=== PATIENT | female | born 1995 | race Caucasian/White ===

== ENCOUNTER 2016-05-15 14:19 | Emergency (ER) | payer OTHER ==
[~2016-05-15] VITALS: Ht 167.6 cm; Wt 90.9 kg
[2016-05-15 14:19] VITALS: BP 138/74; TEMP 98.4
[~2016-05-15 14:19] MED LIST: CEPHALEXIN500 M1 PO; DEBROX OT; FLEXERIL 1010 MG/TAB PO; MOTRIN 800800 MG/TAB PO; NAPROSYN500 MG PO; NEURONTIN300 MG/CAP PO; NORCO 325 MG-51 TAB PO; TYLENOL/CODEINE1 ML PO; ULTRAM 50MG TAB50 MG PO; ZITHROMAX Z PA250 MG PO
[2016-05-15 16:30] LABS: AMPHETAMINE URINE POSITIVE; BARBITURATES URINE NEGATIVE; BENZODIAZEPINES URINE NEGATIVE; BUPRENORPHINE URINE NEGATIVE; METHADONE URINE NEGATIVE; OPIATES URINE NEGATIVE; OXYCODONE URINE NEGATIVE; PHENCYCLIDINE URINE NEGATIVE; PROPOXYPHENE URINE NEGATIVE; THC CANNABINOIDS URINE NEGATIVE
[2016-05-15 16:33] VITALS: PULSE 90
== END 2016-05-15 16:33 | disposition home or self-care (01) ==
LOC: COL.ER 14:19
PROVIDERS: Emergency Medicine
DX: F15.151 Other stimulant abuse with stimulant-induced psychotic disorder with hallucinations (principal)

== ENCOUNTER 2016-05-20 13:47 | Emergency (ER) | payer OTHER ==
[~2016-05-20] VITALS: Ht 167.6 cm; Wt 90.9 kg
[2016-05-20 13:48] VITALS: BP 147/68; PULSE 109; TEMP 98.4
== END 2016-05-20 14:34 | disposition home or self-care (01) ==
LOC: COL.ER 13:47
DX: Z00.8 Encounter for other general examination (principal)

== ENCOUNTER → 2016-06-07 | Outpatient (CLI) | payer OTHER ==
[~2016-06-07] MED LIST changes: +ATARAX50 MG PO; +BUSPAR10 MG PO; +CELEXA 20MG20 MG/TAB PO; +DESYREL 100MG100 MG PO; +PROZAC40 MG PO; +RISPERDAL 1M1 MG/TAB PO; +RISPERDAL2 MG PO; +VISTARIL 2525 MG/CAP PO; +ZOLOFT 100MG100 MG PO
[2016-06-07 18:23] LABS: BASO % 0.5 % (0.0-2.0); EOS # 0.1 (0.0-0.7); EOS % 1.3 % (0-4.0); GRAN # 2.7 (1.4-6.5); GRAN % 48.7 % (42.2-75.2); HEMATOCRIT 40.5 % (35.0-45.0); LYMPH # 2.4 (1.2-3.4); LYMPH % 42.1 % (20.0-51.0); MEAN CELL VOLUME 79 fl (80.0-95.0); MEAN CORPUSCULAR HEMOGLOBIN 25 pg (26.0-32.0); MEAN CORPUSCULAR HGB CONC 32 g/dl (33.0-37.0); MEAN PLATELET VOLUME 10.2 fl (7.4-10.4); MONO # 0.4 (0.1-0.6); PLATELET COUNT 215 K/mm3 (130-400); RED BLOOD COUNT 5.11 M/mm3 (4.10-5.30); REDCELL DISTRIBUTION WIDTH-CV 15.6 % (11.5-14.5); WHITE BLOOD COUNT 5.6 K/mm3 (4.8-10.8)
== END ==
LOC: ZCOL.LAB 17:39 → ZLAB.FHCC 17:39 → COL.RAD 06-10 13:30
DX: Z01.89 Encounter for other specified special examinations (principal)

== ENCOUNTER → 2016-06-10 | Outpatient (CLI) | payer OTHER | LOC: COL.RAD 13:19 | DX: N92.6 Irregular menstruation, unspecified (principal); E66.3 Overweight; R10.2 Pelvic and perineal pain ==

== ENCOUNTER 2016-06-12 11:00 | Emergency (ER) | payer OTHER ==
[~2016-06-12] VITALS: Ht 167.6 cm; Wt 100.0 kg
[~2016-06-12 11:00] MED LIST changes: -ATARAX50 MG PO; -BUSPAR10 MG PO; -CELEXA 20MG20 MG/TAB PO; -DESYREL 100MG100 MG PO; -PROZAC40 MG PO; -RISPERDAL 1M1 MG/TAB PO; -RISPERDAL2 MG PO; -VISTARIL 2525 MG/CAP PO; -ZOLOFT 100MG100 MG PO
[2016-06-12 11:04] VITALS: BP 156/74; PULSE 91; TEMP 97.9
== END 2016-06-12 12:06 | disposition home or self-care (01) ==
LOC: COL.ER 11:00
DX: J06.9 Acute upper respiratory infection, unspecified (principal); H61.23 Impacted cerumen, bilateral

== ENCOUNTER 2016-06-26 15:59 | Emergency (ER) | payer OTHER ==
[~2016-06-26] VITALS: Ht 167.6 cm; Wt 100.0 kg
[2016-06-26 16:04] VITALS: TEMP 98
[2016-06-26] MEDS ORDERED: VISTARIL 2525 MG/CAP PO (16:30)
[2016-06-26] MEDS ORDERED: PROZAC40 MG PO (16:30)
[2016-06-26] MEDS ORDERED: DESYREL 100MG100 MG PO (16:31)
[2016-06-26] MEDS ORDERED: RISPERDAL 1M1 MG/TAB PO (16:31)
[2016-06-26 16:44] LABS: ADJUSTED CALCIUM 9.1 mg/dL (8.4-10.2); ALANINE AMINOTRANSFERASE 269 U/L (9-52); ALBUMIN 4.4 gm/dL (3.5-5.0); ALKALINE PHOSPHATASE 67 U/L (50-136); ANION GAP 12 mmol/L (7-16); BILIRUBIN,TOTAL 0.8 mg/dL (0.0-1.0); BLOOD UREA NITROGEN 12 mg/dL (7-17); CALCIUM 9.4 mg/dL (8.4-10.2); CARBON DIOXIDE 24 mmol/L (22-30); CHLORIDE 100 mmol/L (98-107); CREATININE, serum 0.67 mg/dL (0.52-1.25); GLUCOSE 107 mg/dL (74-106); POTASSIUM 3.6 mmol/L (3.4-5.0); SODIUM 135 mmol/L (137-145); TOTAL PROTEIN 7.6 gm/dL (6.4-8.2)
[2016-06-26 16:51] LABS: ACETAMINOPHEN < 10 ug/mL (10-30); SALICYLATE < 1.0 mg/dL
[2016-06-26 16:53] LABS: HEMATOCRIT 37.7 % (35.0-45.0); HEMOGLOBIN 12.5 g/dl (12.0-15.0); MEAN CELL VOLUME 79 fl (80.0-95.0); MEAN CORPUSCULAR HEMOGLOBIN 26 pg (26.0-32.0); MEAN CORPUSCULAR HGB CONC 33 g/dl (33.0-37.0); MEAN PLATELET VOLUME 9.9 fl (7.4-10.4); PLATELET COUNT 168 K/mm3 (130-400); RED BLOOD COUNT 4.75 M/mm3 (4.10-5.30); REDCELL DISTRIBUTION WIDTH-CV 15.9 % (11.5-14.5); WHITE BLOOD COUNT 7.2 K/mm3 (4.8-10.8)
[2016-06-26 16:56] LABS: ADD PATHOLOGY DIFF REVIEW NO
[2016-06-26 16:59] LABS: AMPHETAMINE URINE NEGATIVE; BARBITURATES URINE NEGATIVE; BENZODIAZEPINES URINE NEGATIVE; BUPRENORPHINE URINE NEGATIVE; METHADONE URINE NEGATIVE; OPIATES URINE NEGATIVE; OXYCODONE URINE NEGATIVE; PHENCYCLIDINE URINE NEGATIVE; PROPOXYPHENE URINE NEGATIVE; THC CANNABINOIDS URINE NEGATIVE
[2016-06-26 17:16] LABS: BAND 9 % (0-10); METAMYELOCYTE 1 % (0-0); MICROCYTOSIS 1+; NEUTROPHILS 43 % (42.0-75.2); PLATELET ESTIMATE NORMAL (NORMAL); TOTAL CELLS COUNTED 100
[2016-06-26 22:11] VITALS: BP 143/76
[2016-06-27 00:13] VITALS: PULSE 82
== END 2016-06-27 00:20 | disposition short-term general hospital (02) ==
LOC: COL.ER 15:59
PROVIDERS: Emergency Medicine
DX: F33.3 Major depressive disorder, recurrent, severe with psychotic symptoms (principal); R45.851 Suicidal ideations; F41.9 Anxiety disorder, unspecified

== ENCOUNTER → 2016-07-05 | Outpatient (CLI) | payer OTHER ==
[~2016-07-05] MED LIST changes: +ATARAX50 MG PO; +BUSPAR10 MG PO; +CELEXA 20MG20 MG/TAB PO; +DESYREL 100MG100 MG PO; +PROZAC40 MG PO; +RISPERDAL 1M1 MG/TAB PO; +RISPERDAL2 MG PO; +VISTARIL 2525 MG/CAP PO; +ZOLOFT 100MG100 MG PO
== END ==
LOC: ZCOL.LAB 19:55 → ZLAB.FHCC 19:55
DX: Z01.89 Encounter for other specified special examinations (principal)

== ENCOUNTER 2016-08-07 00:31 | Emergency (ER) | payer OTHER ==
[~2016-08-07] VITALS: Wt 106.8 kg
[~2016-08-07 00:31] MED LIST changes: -ATARAX50 MG PO; -BUSPAR10 MG PO; -CELEXA 20MG20 MG/TAB PO; -RISPERDAL2 MG PO; -ZOLOFT 100MG100 MG PO
[2016-08-07 00:34] VITALS: TEMP 98.3
[2016-08-07 02:13] LABS: BASO # 0.1 (0.0-0.2); BASO % 0.7 % (0.0-2.0); EOS # 0.1 (0.0-0.7); EOS % 1.2 % (0-4.0); GRAN # 4.6 (1.4-6.5); GRAN % 53.3 % (42.2-75.2); HEMATOCRIT 37.8 % (35.0-45.0); HEMOGLOBIN 13.1 g/dl (12.0-15.0); LYMPH # 2.9 (1.2-3.4); LYMPH % 34.4 % (20.0-51.0); MEAN CELL VOLUME 81 fl (80.0-95.0); MEAN CORPUSCULAR HEMOGLOBIN 28 pg (26.0-32.0); MEAN CORPUSCULAR HGB CONC 35 g/dl (33.0-37.0); MEAN PLATELET VOLUME 9.4 fl (7.4-10.4); MONO # 0.9 (0.1-0.6); PLATELET COUNT 193 K/mm3 (130-400); RED BLOOD COUNT 4.65 M/mm3 (4.10-5.30); REDCELL DISTRIBUTION WIDTH-CV 14.9 % (11.5-14.5); WHITE BLOOD COUNT 8.5 K/mm3 (4.8-10.8)
[2016-08-07 02:22] LABS: ACETAMINOPHEN < 10 ug/mL (10-30); ADJUSTED CALCIUM 8.9 mg/dL (8.4-10.2); ALANINE AMINOTRANSFERASE 71 U/L (9-52); ALBUMIN 4.5 gm/dL (3.5-5.0); ALKALINE PHOSPHATASE 57 U/L (50-136); ANION GAP 16 mmol/L (7-16); BILIRUBIN,TOTAL 0.9 mg/dL (0.0-1.0); BLOOD UREA NITROGEN 10 mg/dL (7-17); CALCIUM 9.3 mg/dL (8.4-10.2); CARBON DIOXIDE 22 mmol/L (22-30); CHLORIDE 103 mmol/L (98-107); CREATININE, serum 0.94 mg/dL (0.52-1.25); GLUCOSE 114 mg/dL (74-106); POTASSIUM 3.3 mmol/L (3.4-5.0); SODIUM 142 mmol/L (137-145); TOTAL PROTEIN 7.7 gm/dL (6.4-8.2)
[2016-08-07 03:02] LABS: AMPHETAMINE URINE NEGATIVE; BARBITURATES URINE NEGATIVE; BENZODIAZEPINES URINE NEGATIVE; BUPRENORPHINE URINE NEGATIVE; METHADONE URINE NEGATIVE; OPIATES URINE NEGATIVE; OXYCODONE URINE NEGATIVE; PHENCYCLIDINE URINE NEGATIVE; PROPOXYPHENE URINE NEGATIVE; THC CANNABINOIDS URINE NEGATIVE
[2016-08-07] MEDS ORDERED: CELEXA 20MG20 MG/TAB PO (06:00)
[2016-08-07] MEDS ORDERED: BUSPAR10 MG PO (06:00)
[2016-08-07] MEDS ORDERED: RISPERDAL2 MG PO (06:00)
[2016-08-07] MEDS ORDERED: ATARAX50 MG PO (06:01)
[2016-08-07 08:07] VITALS: BP 145/66; PULSE 81
== END 2016-08-07 08:40 ==
LOC: COL.ER 00:31
PROVIDERS: Family Medicine
DX: T43.222A Poisoning by selective serotonin reuptake inhibitors, intentional self-harm, initial encounter (principal); F32.9 Major depressive disorder, single episode, unspecified

== ENCOUNTER 2016-09-12 17:42 | Emergency (ER) | payer OTHER ==
[~2016-09-12] VITALS: Ht 167.6 cm; Wt 100.0 kg
[~2016-09-12 17:42] MED LIST changes: +ATARAX50 MG PO; +BUSPAR10 MG PO; +CELEXA 20MG20 MG/TAB PO; +RISPERDAL2 MG PO
[2016-09-12] MEDS ORDERED: ZOLOFT 100MG100 MG PO (17:48)
[2016-09-12] MEDS ORDERED: FLEXERIL 1010 MG/TAB PO (19:39)
[2016-09-12 19:57] VITALS: BP 143/99; PULSE 89; TEMP 97.9
== END 2016-09-12 19:59 | disposition home or self-care (01) ==
LOC: COL.ER 17:42
DX: M54.2 Cervicalgia (principal); F32.9 Major depressive disorder, single episode, unspecified; F41.9 Anxiety disorder, unspecified; R51 Headache; M54.89 Other dorsalgia; M54.5 Low back pain; G89.29 Other chronic pain; F17.210 Nicotine dependence, cigarettes, uncomplicated
CPT/HCPCS: J1885; J2360

== ENCOUNTER 2017-05-20 19:46 | Emergency (ER) | payer SELFPAY ==
[~2017-05-20] VITALS: Ht 167.6 cm; Wt 113.6 kg
[~2017-05-20 19:46] MED LIST changes: +CRUTCHES MC; +VRAYLAR1.5 MG PO; +ZOLOFT 100MG100 MG PO
[2017-05-20 19:50] VITALS: TEMP 98
[2017-05-20] MEDS ORDERED: NORCO 325 MG-51 TAB PO (20:46)
[2017-05-20 20:59] VITALS: BP 141/84; PULSE 88
== END 2017-05-20 21:00 | disposition home or self-care (01) ==
LOC: COL.ER 19:46
DX: S02.2XXA Fracture of nasal bones, initial encounter for closed fracture (principal); F32.9 Major depressive disorder, single episode, unspecified; Y04.8XXA Assault by other bodily force, initial encounter

== ENCOUNTER 2017-09-19 16:29 | Emergency (ER) | payer SELFPAY ==
[~2017-09-19] VITALS: Ht 170.2 cm; Wt 120.5 kg
[2017-09-19 16:32] VITALS: TEMP 99.5
[2017-09-19 17:06] LABS: BASO # 0.1 (0.0-0.2); BASO % 0.5 % (0.0-2.0); EOS # 0.2 (0.0-0.7); EOS % 2.1 % (0-4.0); GRAN # 5.9 (1.4-6.5); GRAN % 60.8 % (42.2-75.2); HEMATOCRIT 43.3 % (37.0-47.0); HEMOGLOBIN 15.1 g/dl (12.5-16.0); LYMPH # 2.9 (1.2-3.4); LYMPH % 29.6 % (20.0-51.0); MEAN CELL VOLUME 83 fl (80.0-100.0); MEAN CORPUSCULAR HEMOGLOBIN 29 pg (27.0-31.0); MEAN CORPUSCULAR HGB CONC 35 g/dl (33.0-37.0); MEAN PLATELET VOLUME 9.5 fl (7.4-10.4); MONO # 0.6 (0.1-0.6); MONO % 6.6 % (1.7-9.3); PLATELET COUNT 231 K/mm3 (130-400); RED BLOOD COUNT 5.21 M/mm3 (4.10-5.30); REDCELL DISTRIBUTION WIDTH-CV 12.9 % (11.5-14.5)
[2017-09-19 17:17] LABS: ALANINE AMINOTRANSFERASE 55 U/L (9-52); ALBUMIN 4.5 gm/dL (3.5-5.0); ALKALINE PHOSPHATASE 77 U/L (50-136); ANION GAP 14 mmol/L (7-16); AST,SGOT 33 U/L (15-37); BILIRUBIN,TOTAL 0.5 mg/dL (0.0-1.0); BLOOD UREA NITROGEN 10 mg/dL (7-17); CALCIUM 9.7 mg/dL (8.4-10.2); CARBON DIOXIDE 22 mmol/L (22-30); CHLORIDE 105 mmol/L (98-107); CREATININE, serum 0.54 mg/dL (0.52-1.25); GLUCOSE 95 mg/dL (74-106); POTASSIUM 3.8 mmol/L (3.4-5.0); SODIUM 141 mmol/L (137-145); TOTAL PROTEIN 8.2 gm/dL (6.4-8.2)
[2017-09-19] MEDS ORDERED: PRINZIDE 12.5 M1 TAB PO (17:20)
[2017-09-19 17:28] LABS: TROPONIN-I < 0.012 ng/mL (0.000-0.034)
[2017-09-19 17:50] VITALS: BP 135/91; PULSE 83
== END 2017-09-19 17:50 | disposition home or self-care (01) ==
LOC: COL.ER 16:29
PROVIDERS: Family Medicine
DX: I10 Essential (primary) hypertension (principal); R51 Headache

== ENCOUNTER → 2017-09-29 | Outpatient (CLI) | payer BC ==
[~2017-09-29] MED LIST changes: +PRINZIDE 12.5 M1 TAB PO
== END ==
LOC: COL.LAB 10:27
DX: R55 Syncope and collapse (principal)

== ENCOUNTER → 2017-10-24 | Outpatient (CLI) | payer BC | LOC: COL.VAS 12:29 | DX: I10 Essential (primary) hypertension (principal); F17.210 Nicotine dependence, cigarettes, uncomplicated; R55 Syncope and collapse ==

== ENCOUNTER 2017-11-08 08:32 | Emergency (ER) | payer BC ==
[~2017-11-08] VITALS: Ht 170.2 cm; Wt 113.6 kg
[2017-11-08 08:37] VITALS: TEMP 98.4
[2017-11-08] MEDS ORDERED: PRINZIDE 12.5 M1 TA1 PO (08:41)
[2017-11-08] MEDS ORDERED: DEBROX OT (09:10)
[2017-11-08] MEDS ORDERED: MOTRIN 600600 MG/TAB PO (09:11)
[2017-11-08 09:28] VITALS: BP 135/75; PULSE 81
== END 2017-11-08 09:29 | disposition home or self-care (01) ==
LOC: COL.ER 08:32
DX: S93.402A Sprain of unspecified ligament of left ankle, initial encounter (principal); H61.21 Impacted cerumen, right ear; B19.20 Unspecified viral hepatitis C without hepatic coma; F32.9 Major depressive disorder, single episode, unspecified; F41.9 Anxiety disorder, unspecified; F17.210 Nicotine dependence, cigarettes, uncomplicated; F12.90 Cannabis use, unspecified, uncomplicated; X50.1XXA Overexertion from prolonged static or awkward postures, initial encounter; Y92.410 Unspecified street and highway as the place of occurrence of the external cause

== ENCOUNTER 2018-01-09 00:47 | Emergency (ER) | payer BC ==
[~2018-01-09] VITALS: Ht 170.2 cm; Wt 118.2 kg
[~2018-01-09 00:47] MED LIST changes: +MOTRIN 600600 MG/TAB PO; +PRINZIDE 12.5 M1 TA1 PO
[2018-01-09 00:52] VITALS: PULSE 85; TEMP 97.6
[2018-01-09 02:30] VITALS: BP 138/94
== END 2018-01-09 02:35 | disposition home or self-care (01) ==
LOC: COL.ER 00:47
DX: M54.14 Radiculopathy, thoracic region (principal); I10 Essential (primary) hypertension; F17.210 Nicotine dependence, cigarettes, uncomplicated; Z86.19 Personal history of other infectious and parasitic diseases; Z90.89 Acquired absence of other organs

== ENCOUNTER → 2018-03-07 | Outpatient (CLI) | payer BC ==
[2018-03-07 16:27] LABS: BASO % 0.5 % (0.0-2.0); EOS # 0.2 (0.0-0.7); EOS % 2.4 % (0-4.0); GRAN # 4.6 (1.4-6.5); GRAN % 58.5 % (42.2-75.2); HEMATOCRIT 46.4 % (37.0-47.0); HEMOGLOBIN 15.5 g/dl (12.5-16.0); LYMPH # 2.6 (1.2-3.4); LYMPH % 32.9 % (20.0-51.0); MEAN CELL VOLUME 87 fl (80.0-100.0); MEAN CORPUSCULAR HEMOGLOBIN 29 pg (27.0-31.0); MEAN CORPUSCULAR HGB CONC 33 g/dl (33.0-37.0); MEAN PLATELET VOLUME 10.3 fl (7.4-10.4); MONO # 0.4 (0.1-0.6); MONO % 5.2 % (1.7-9.3); PLATELET COUNT 223 K/mm3 (130-400); RED BLOOD COUNT 5.32 M/mm3 (4.10-5.30); REDCELL DISTRIBUTION WIDTH-CV 13.2 % (11.5-14.5)
[2018-03-07 16:33] LABS: BILIRUBIN,TOTAL 0.5 mg/dL (0.0-1.0); CALCIUM 8.9 mg/dL (8.4-10.2); CREATININE, serum 0.59 mg/dL (0.52-1.25); POTASSIUM 4.5 mmol/L (3.4-5.0); TOTAL PROTEIN 7.2 gm/dL (6.4-8.2)
== END ==
LOC: ZCOL.LAB 16:19
PROVIDERS: Family Medicine
DX: R10.12 Left upper quadrant pain (principal); R05 Cough

== ENCOUNTER → 2018-03-16 | Outpatient (CLI) | payer BC | LOC: BHSO 13:58 | DX: F41.1 Generalized anxiety disorder (principal) ==

== ENCOUNTER 2018-03-19 09:05 | Emergency (ER) | payer BC ==
[~2018-03-19] VITALS: Ht 170.2 cm; Wt 110.3 kg
[2018-03-19] MEDS ORDERED: CEPHALEXIN500 M1 PO (10:55)
[2018-03-19 12:05] VITALS: BP 150/106; PULSE 89; TEMP 98.5
== END 2018-03-19 12:05 | disposition home or self-care (01) ==
LOC: COL.ER 09:05
DX: S71.112A Laceration without foreign body, left thigh, initial encounter (principal); S63.502A Unspecified sprain of left wrist, initial encounter; S20.219A Contusion of unspecified front wall of thorax, initial encounter; I10 Essential (primary) hypertension; Z23 Encounter for immunization; X99.1XXA Assault by knife, initial encounter; Y92.009 Unspecified place in unspecified non-institutional (private) residence as the place of occurrence of the external cause; Y07.01 Husband, perpetrator of maltreatment and neglect
CPT/HCPCS: A9284

== ENCOUNTER 2018-03-25 05:44 | Emergency (ER) | payer BC ==
[~2018-03-25] VITALS: Ht 170.2 cm; Wt 113.6 kg
[2018-03-25 05:50] VITALS: TEMP 97.8
[2018-03-25 07:00] VITALS: BP 143/92; PULSE 96
== END 2018-03-25 07:01 | disposition home or self-care (01) ==
LOC: COL.ER 05:44
DX: S20.212A Contusion of left front wall of thorax, initial encounter (principal); F41.9 Anxiety disorder, unspecified; F32.9 Major depressive disorder, single episode, unspecified; Y04.8XXA Assault by other bodily force, initial encounter

== ENCOUNTER → 2018-03-29 | Outpatient (CLI) | payer BC | LOC: BHSO 08:51 | DX: F41.1 Generalized anxiety disorder (principal) ==

== ENCOUNTER → 2018-04-24 | Outpatient (CLI) | payer BC | LOC: COL.RAD 12:41 | DX: M40.202 Unspecified kyphosis, cervical region (principal) ==

== ENCOUNTER → 2018-05-22 | Outpatient (CLI) | payer BC ==
[2018-05-22 18:40] LABS: THYROID STIMULATING HORMONE 3.18 uIU/mL (0.465-4.680)
== END ==
LOC: ZCOL.LAB 17:04
PROVIDERS: Family Medicine
DX: N92.6 Irregular menstruation, unspecified (principal)

== ENCOUNTER → 2018-06-01 | Outpatient (CLI) | payer BC | LOC: BHSO 11:00 | DX: F41.0 Panic disorder [episodic paroxysmal anxiety] (principal) ==

== ENCOUNTER → 2018-06-13 | Outpatient (CLI) | payer BC | LOC: BHSO 10:00 | DX: F41.1 Generalized anxiety disorder (principal) ==

== ENCOUNTER 2018-06-18 11:00 | Outpatient (RCR) | payer BC | END 2018-08-20 | disposition home or self-care (01) | LOC: MKS.ESL.PT | DX: M54.2 Cervicalgia (principal); F17.210 Nicotine dependence, cigarettes, uncomplicated | CPT/HCPCS: G0283-GP ==

== ENCOUNTER → 2018-07-20 | Outpatient (CLI) | payer BC ==
[2018-07-20 18:17] LABS: HIV 1/2 Antibodies Non-Reactive; HIV-1p24 Antigen Non-Reactive
== END ==
LOC: COL.LAB 17:43 → ZCOL.LAB 17:43
PROVIDERS: Family Medicine
DX: Z87.898 Personal history of other specified conditions (principal)

== ENCOUNTER 2018-10-04 21:42 | Emergency (ER) | payer BC ==
[~2018-10-04] VITALS: Ht 170.2 cm; Wt 104.5 kg
[2018-10-04 21:50] VITALS: BP 170/99; TEMP 97.2
[2018-10-04 22:36] LABS: BASO # 0.1 (0.0-0.2); BASO % 0.7 % (0.0-2.0); EOS # 0.1 (0.0-0.7); EOS % 1.8 % (0-4.0); GRAN # 4.1 (1.4-6.5); GRAN % 54.4 % (42.2-75.2); HEMOGLOBIN 14.3 g/dl (12.5-16.0); LYMPH # 2.9 (1.2-3.4); LYMPH % 37.5 % (20.0-51.0); MEAN CELL VOLUME 88 fl (80.0-100.0); MEAN CORPUSCULAR HEMOGLOBIN 30 pg (27.0-31.0); MEAN CORPUSCULAR HGB CONC 34 g/dl (33.0-37.0); MEAN PLATELET VOLUME 10.1 fl (7.4-10.4); MONO # 0.4 (0.1-0.6); MONO % 5.3 % (1.7-9.3); PLATELET COUNT 228 K/mm3 (130-400); RED BLOOD COUNT 4.77 M/mm3 (4.10-5.30); REDCELL DISTRIBUTION WIDTH-CV 13.3 % (11.5-14.5)
[2018-10-04 22:40] LABS: ALANINE AMINOTRANSFERASE 22 U/L (9-52); ALBUMIN 4.7 gm/dL (3.5-5.0); ALKALINE PHOSPHATASE 72 U/L (50-136); ANION GAP 11 mmol/L (7-16); AST,SGOT 28 U/L (15-37); BILIRUBIN,TOTAL 0.4 mg/dL (0.0-1.0); BLOOD UREA NITROGEN 16 mg/dL (7-17); CALCIUM 9.5 mg/dL (8.4-10.2); CARBON DIOXIDE 25 mmol/L (22-30); CHLORIDE 105 mmol/L (98-107); CREATININE, serum 0.68 (0.52-1.25); GLUCOSE 88 mg/dL (74-106); POTASSIUM 3.7 mmol/L (3.4-5.0); SODIUM 142 mmol/L (137-145); TOTAL PROTEIN 7.7 gm/dL (6.4-8.2)
[2018-10-04 22:53] LABS: TROPONIN-I < 0.012 ng/mL (0.000-0.035)
[2018-10-04] MEDS ORDERED: NAPROXEN 3375 MG/TAB PO (23:42)
[2018-10-05 00:04] VITALS: PULSE 74
== END 2018-10-05 | disposition home or self-care (01) ==
LOC: COL.ER 21:42
PROVIDERS: Emergency Medicine
DX: R07.89 Other chest pain (principal); R00.2 Palpitations; I10 Essential (primary) hypertension; F17.210 Nicotine dependence, cigarettes, uncomplicated
CPT/HCPCS: J1885

== ENCOUNTER → 2018-12-12 | Outpatient (CLI) | payer BC ==
[~2018-12-12] MED LIST changes: +NAPROXEN 3375 MG/TAB PO
== END ==
LOC: COL.LAB 17:54
DX: R30.0 Dysuria (principal)

== ENCOUNTER 2018-12-19 11:54 | Emergency (ER) | payer BC ==
[~2018-12-19] VITALS: Ht 167.6 cm; Wt 95.5 kg
[2018-12-19] MEDS ORDERED: NORMODYNE100 MG PO (12:14)
[2018-12-19 12:33] LABS: COLLECTION METHOD CLEAN CATCH
[2018-12-19 12:37] LABS: BASO % 0.4 % (0.0-2.0); EOS # 0.1 (0.0-0.7); EOS % 0.9 % (0-4.0); GRAN # 8.5 (1.4-6.5); GRAN % 74.5 % (42.2-75.2); HEMATOCRIT 43.3 % (37.0-47.0); LYMPH # 2.3 (1.2-3.4); LYMPH % 19.9 % (20.0-51.0); MEAN CELL VOLUME 86 fl (80.0-100.0); MEAN CORPUSCULAR HEMOGLOBIN 30 pg (27.0-31.0); MEAN CORPUSCULAR HGB CONC 35 g/dl (33.0-37.0); MONO # 0.5 (0.1-0.6); PLATELET COUNT 213 K/mm3 (130-400); RED BLOOD COUNT 5.05 M/mm3 (4.10-5.30); REDCELL DISTRIBUTION WIDTH-CV 12.8 % (11.5-14.5)
[2018-12-19 12:47] LABS: BUDDING YEAST Present /hpf; MUCOUS Present /lpf; PH 7 (5-8); URINE APPEARANCE Turbid; URINE BACTERIA None Seen /hpf; URINE BILIRUBIN Negative (NEGATIVE); URINE BLOOD 3+ (NEGATIVE); URINE COLOR Amber; URINE GLUCOSE Negative (NEGATIVE); URINE KETONE Negative (NEGATIVE); URINE LEUKOCYTE ESTERASE Negative (NEGATIVE); URINE NITRATE Negative (NEGATIVE); URINE PROTEIN(semi-quant) Negative (NEGATIVE); URINE UROBILINOGEN Negative (NEGATIVE)
[2018-12-19 13:02] LABS: ALBUMIN 4.4 gm/dL (3.5-5.0); BILIRUBIN,TOTAL 0.4 mg/dL (0.0-1.0); C-REACTIVE PROTEIN 0.7 mg/dL (0.0-0.9); CALCIUM 9.3 mg/dL (8.4-10.2); CREATININE, serum 0.46 (0.52-1.25); POTASSIUM 4.1 mmol/L (3.4-5.0); TOTAL PROTEIN 7.4 gm/dL (6.4-8.2)
[2018-12-19 15:14] VITALS: BP 132/62; PULSE 86; TEMP 98.8
== END 2018-12-19 15:15 | disposition home or self-care (01) ==
LOC: COL.ER 11:54
PROVIDERS: Physician Assistant
DX: O46.91 Antepartum hemorrhage, unspecified, first trimester (principal); O99.341 Other mental disorders complicating pregnancy, first trimester; O99.331 Smoking (tobacco) complicating pregnancy, first trimester; F32.9 Major depressive disorder, single episode, unspecified; F41.9 Anxiety disorder, unspecified; F17.210 Nicotine dependence, cigarettes, uncomplicated; Z3A.01 Less than 8 weeks gestation of pregnancy

== ENCOUNTER 2019-03-21 13:25 | Emergency (ER) | payer BC ==
[~2019-03-21] VITALS: Ht 167.6 cm; Wt 90.9 kg
[~2019-03-21 13:25] MED LIST changes: +NORMODYNE100 MG PO
[2019-03-21 13:33] VITALS: BP 132/61; TEMP 98.5
[2019-03-21 14:26] VITALS: PULSE 97
== END 2019-03-21 14:27 | disposition home or self-care (01) ==
LOC: COL.ER 13:25
DX: O26.899 Other specified pregnancy related conditions, unspecified trimester (principal); R22.42 Localized swelling, mass and lump, left lower limb; Z3A.00 Weeks of gestation of pregnancy not specified

== ENCOUNTER → 2019-12-17 | Outpatient (CLI) | payer BC | LOC: BHSO 11:33 | DX: F41.1 Generalized anxiety disorder (principal) | CPT/HCPCS: G0463 ==